=== PATIENT | female | born 1935 | race Caucasian/White ===

== ENCOUNTER 2022-11-15 18:49 | Emergency (ER) | payer MEDICARE, OTHER ==
[~2022-11-15] VITALS: Ht 165.1 cm; Wt 56.2 kg
[2022-11-15] MEDS ORDERED: CLONIDINE HCL 0.1 MG TABLET PO ONE (19:15)
[2022-11-15] MEDS ORDERED: CLONIDINE HCL 0.1 MG TABLET ONE (19:18)
[2022-11-15] MEDS ORDERED: ACETAMINOPHEN ES 500 MG TABLET PO ONE (19:30)
[2022-11-15 19:38] LABS: HEMATOCRIT 42.5 % (31.2-41.9); MEAN CORPUSCULAR HEMOGLOBIN 28.7 uug (24.7-32.8); MEAN CORPUSCULAR VOLUME 87.6 fL (75.5-95.3); PLATELET COUNT (AUTO) 292 K/uL (179-408)
[2022-11-15 19:41] LABS: CREATININE 0.9 mg/dL (0.6-1.3)
[2022-11-15] MEDS ORDERED: ACETAMINOPHEN ES 500 MG TABLET ONE (20:25)
[2022-11-15] MEDS ORDERED: CYANOCOBALAMIN 1000 MCG/ML VIAL IM ONE (21:00)
[2022-11-15] MEDS ORDERED: CYANOCOBALAMIN 1000 MCG/ML VIAL ONE (21:10)
--- NOTE | 2022-11-15 21:38 | NUR ---
Discharge instructions completed, patient and son verbalized verbalizes unserstanding. paper work signed by patient's son and given to him. Patient in a stable condition via Wheelchair left the ER accompanied by son.
[2022-11-16 02:05] VITALS: BP 146/79
== END 2022-11-15 21:21 | disposition home or self-care (01) ==
LOC: ER 18:57
DX: S09.90XA Unspecified injury of head, initial encounter (principal); W01.0XXA Fall on same level from slipping, tripping and stumbling without subsequent striking against object, initial encounter; Y92.099 Unspecified place in other non-institutional residence as the place of occurrence of the external cause; F09 Unspecified mental disorder due to known physiological condition; D72.829 Elevated white blood cell count, unspecified
CPT/HCPCS: 99284; 70450; 80048; 82607; 83735; 85025; 36415; 96372; J3420; A4663; A9150

== ENCOUNTER 2024-10-22 14:13 | Emergency (ER) | payer MEDICARE, OTHER ==
[~2024-10-22] VITALS: Ht 165.1 cm; Wt 54.4 kg
[~2024-10-22 14:13] MED LIST: ONDA4TAB5 PO
[2024-10-22 15:00] LABS: BASOPHILS # (AUTO) 0.1 K/UL (0.0-0.2); BASOPHILS % (AUTO) 0.5 % (0.0-2.0); EOSINOPHILS # (AUTO) 0.1 K/uL (0.0-0.7); EOSINOPHILS % (AUTO) 1.2 % (0.0-7.0); HEMATOCRIT 41.5 % (31.2-41.9); HEMOGLOBIN 13.9 g/dL (10.9-14.3); LYMPHOCYTES # (AUTO) 2.2 K/uL (0.8-4.8); LYMPHOCYTES % (AUTO) 20.9 % (20.5-51.5); MEAN CORPUSCULAR HEMOGLOBIN 29.4 uug (24.7-32.8); MEAN CORPUSCULAR HGB CONC 34 g/dL (32.3-35.6); MEAN CORPUSCULAR VOLUME 87.7 fL (75.5-95.3); MONOCYTES # (AUTO) 1.4 K/uL (0.1-1.30); MONOCYTES % (AUTO) 13.8 % (0.0-11.0); NEUTROPHILS # (AUTO) 6.6 K/uL (1.8-8.9); NEUTROPHILS % (AUTO) 63.6 % (38.5-71.5); PLATELET COUNT (AUTO) 291 K/uL (179-408); RED BLOOD CELL COUNT(AUTO) 4.73 MIL/uL (3.63-4.92); RED CELL DISTRIBUTION WIDTH 14.3 % (12.3-17.7); WHITE BLOOD COUNT (AUTO) 10.4 K/uL (3.8-11.8)
[2024-10-22 15:04] LABS: DIFFERENTIAL COMMENT 1
[2024-10-22 15:08] LABS: CALCIUM 9.1 mg/dL (8.5-10.1); CARBON DIOXIDE 31 mmol/L (21-32); CHLORIDE 100 mmol/L (98-107); CREATININE 1.2 mg/dL (0.6-1.3); GLUCOSE 98 mg/dL (74-106); POTASSIUM 3.9 mmol/L (3.5-5.1); SODIUM SERUM 138 mmol/L (136-145); UREA NITROGEN, BLOOD 33 mg/dL (7-18)
[2024-10-22 15:17] LABS: ALANINE AMINOTRANSFERASE 23 U/L (14-59); ALBUMIN 3.1 g/dL (3.4-5.0); ALKALINE PHOSPHATASE 81 U/L (50-136); ASPARTATE AMINOTRANSFERASE 6 U/L (15-37); BILIRUBIN,DIRECT 0.2 mg/dL (0.0-0.2); BILIRUBIN,TOTAL 0.5 mg/dL (0.2-1.0); TOTAL PROTEIN, SERUM 6.2 g/dL (6.4-8.2)
[2024-10-22] MEDS ORDERED: SWABABLE VALVE TRANSFER SET EA MC ONE (15:28)
[2024-10-22] MEDS ORDERED: IV NORMAL SALINE 250 ML IV ONE (15:28)
[2024-10-22] MEDS ORDERED: IOHEXOL 300MG/ML 100 ML INFUS..BTL ONE (15:28)
[2024-10-22 15:38] LABS: MAGNESIUM 2.1 mg/dL (1.8-2.4)
[2024-10-22] MEDS: IV NS 1000 ML 1,000 ML IV ONE (16:06)
[2024-10-22 17:32] LABS: *BILIRUBIN,URIN NEGATIVE (NEGATIVE); *CLARITY,URINE CLEAR (CLEAR); *COLOR,URINE YELLOW (YELLOW); *KETONES,URINE NEGATIVE (NEGATIVE); *PROTEIN,URINE NEGATIVE (NEGATIVE); *UROBILINOGEN,URINE 0.2 E.U./dl (NORMAL); LEUKOCYTE ESTERASE ,URINE NEGATIVE (NEGATIVE); NITRITE, URINE NEGATIVE (NEGATIVE); PH,URINE 5.5 (5.0-8.0); UGLUCOSE NEGATIVE (NEGATIVE)
[2024-10-22 17:34] LABS: *BLOOD, URINE TRACE (NEGATIVE)
[2024-10-22 17:41] LABS: BACTERIA,URINE NONE SEEN /HPF (NONE SEEN); RBC,URINE 0-3 /HPF (0-3); SQUAMOUS EPITHELIAL CELL,UR FEW /HPF (NONE SEEN); WBC,URINE NONE SEEN /HPF (0-3)
[2024-10-22 20:23] VITALS: BP 111/72; TEMP 98; O2SAT 98
== END 2024-10-22 20:23 | disposition home or self-care (01) ==
LOC: ER 14:13
DX: R50.9 Fever, unspecified (principal); F09 Unspecified mental disorder due to known physiological condition; E11.9 Type 2 diabetes mellitus without complications; R11.0 Nausea; R06.00 Dyspnea, unspecified; R07.9 Chest pain, unspecified; E78.5 Hyperlipidemia, unspecified; F32.A Depression, unspecified; Z88.0 Allergy status to penicillin; Z88.1 Allergy status to other antibiotic agents; Z88.8 Allergy status to other drugs, medicaments and biological substances; Z86.59 Personal history of other mental and behavioral disorders
CPT/HCPCS: 36415; 71045; 83605; 83735; 84484; 85025; A4606; A4663; J7040; Q9967